=== PATIENT | male | born 1980 | race American Indian/Alaskan Native ===

== ENCOUNTER 2018-07-30 04:38 | Emergency (ER) | payer SELFPAY ==
[2018-07-30 04:50] VITALS: BP 138/91
--- NOTE | 2018-07-30 05:19 | Emergency Department Report ---
- General Chief complaint: Skin Rash Stated complaint: SKIN IRRITATION Time Seen by Provider: 07/30/18 05:08 Source: patient Mode of arrival: Ambulatory Limitations: No Limitations - History of Present Illness Initial comments: Patient is a 37-year-old [place] male who presents for rash dressing and flaky to suprapubic area no rash or penile shaft dry itchy flaky no open lesion or ulcer no cauleyflower rash or papules, no fever or chills, patient states monogamous relationship same partner multiple years states burning in and itching with urination patient does have history of eczema MD complaint: rash Onset/Timin -: week(s) Tetanus Up to Date: yes Location: genitals (abd) Severity: moderate Severity scale (0 -10): 3 Quality: other (itching ) Consistency: intermittent Worsens with: other (scratching ) Context: none Associated symptoms: itching, other (dysuria ) Treatments Prior to Arrival: none - Related Data Previous Rx's Medication Instructions Recorded Last Taken Type Fluconazole [Diflucan TAB] 150 mg PO ONCE #1 tablet 07/30/18 Unknown Rx Miconazole 2% [Monistat-Derm] 1 applicatio TP BID 10 Days #1 tube 07/30/18 Unknown Rx Triamcinolone Aceton 0.1% (Nf) 1 applic TP BID 14 Days #1 tube 07/30/18 Unknown Rx [Kenalog (NF)] diphenhydrAMINE [Benadryl CAP] 25 mg PO Q6HR PRN #30 capsule 07/30/18 Unknown Rx Allergies Allergy/AdvReac Type Severity Reaction Status Date / Time No Known Allergies Allergy Unverified 07/30/18 04:49 Abscess Boil HPI - HPI Chief Complaint: Skin Rash Stated Complaint: SKIN IRRITATION Time Seen by Provider: 07/30/18 05:08 Home Medications: Previous Rx's Medication Instructions Recorded Last Taken Type Fluconazole [Diflucan TAB] 150 mg PO ONCE #1 tablet 07/30/18 Unknown Rx Miconazole 2% [Monistat-Derm] 1 applicatio TP BID 10 Days #1 tube 07/30/18 Unknown Rx Triamcinolone Aceton 0.1% (Nf) 1 applic TP BID 14 Days #1 tube 07/30/18 Unknown Rx [Kenalog (NF)] diphenhydrAMINE [Benadryl CAP] 25 mg PO Q6HR PRN #30 capsule 07/30/18 Unknown Rx Allergies/Adverse Reactions: Allergies Allergy/AdvReac Type Severity Reaction Status Date / Time No Known Allergies Allergy Unverified 07/30/18 04:49 ED Review of Systems ROS: Stated complaint: SKIN IRRITATION Other details as noted in HPI Constitutional: denies: chills, fever Eyes: denies: eye pain, eye discharge, vision change ENT: denies: ear pain, throat pain Respiratory: denies: cough, shortness of breath, wheezing Cardiovascular: denies: chest pain, palpitations Endocrine: no symptoms reported Gastrointestinal: denies: abdominal pain, nausea, diarrhea Genitourinary: urgency, dysuria, frequency. denies: hematuria, discharge, testicular pain, testicular mass Musculoskeletal: denies: back pain, joint swelling, arthralgia Skin: rash. denies: lesions Neurological: denies: headache, weakness, paresthesias Psychiatric: denies: anxiety, depression Hematological/Lymphatic: denies: easy bleeding, easy bruising ED Past Medical Hx - Past Medical History Previous Medical History?: No - Surgical History Past Surgical History?: No - Social History Smoking Status: Current Every Day Smoker Substance Use Type: None - Medications Home Medications: Home Medications Medication Instructions Recorded Confirmed Last Taken Type Fluconazole [Diflucan TAB] 150 mg PO ONCE #1 tablet 07/30/18 Unknown Rx Miconazole 2% [Monistat-Derm] 1 applicatio TP BID 10 Days #1 tube 07/30/18 Unknown Rx Triamcinolone Aceton 0.1% (Nf) 1 applic TP BID 14 Days #1 tube 07/30/18 Unknown Rx [Kenalog (NF)] diphenhydrAMINE [Benadryl CAP] 25 mg PO Q6HR PRN #30 capsule 07/30/18 Unknown Rx ED Physical Exam - General Limitations: No Limitations General appearance: alert, in no apparent distress - Head Head exam: Present: atraumatic, normocephalic - Eye Eye exam: Present: normal appearance - ENT ENT exam: Present: mucous membranes moist - Neck Neck exam: Present: normal inspection - Respiratory Respiratory exam: Present: normal lung sounds bilaterally. Absent: respiratory distress, wheezes, stridor, chest wall tenderness - Cardiovascular Cardiovascular Exam: Present: regular rate, normal rhythm, normal heart sounds. Absent: systolic murmur, diastolic murmur, rubs, gallop - GI/Abdominal GI/Abdominal exam: Present: soft, normal bowel sounds. Absent: distended, tenderness, guarding, rebound, rigid, bruit, hernia - Rectal Rectal exam: Present: deferred - exam: Present: normal inspection, circumcision. Absent: testicular tenderness, urethral discharge, scrotal swelling, vertical testicular lie External exam: Present: erythema (erythema dry painful to touch no lesions no open sorers ). Absent: swelling, lesions, lacerations, ecchymosis, bleeding - Expanded Exam Expanded Male exam: Present: erythema, balanitis - Extremities Exam Extremities exam: Present: normal inspection, full ROM. Absent: tenderness - Back Exam Back exam: Present: normal inspection, full ROM. Absent: tenderness, CVA tenderness (R), CVA tenderness (L), muscle spasm, rash noted - Neurological Exam Neurological exam: Present: alert, oriented X3 - Psychiatric Psychiatric exam: Present: normal affect, normal mood - Skin Skin exam: Present: warm, dry, intact, normal color. Absent: rash ED Course Vital Signs 07/30/18 04:45 Temperature 98.6 F Pulse Rate 87 Respiratory 18 Rate Blood Pressure 138/91 O2 Sat by Pulse 99 Oximetry ED Medical Decision Making - Lab Data Labs 07/30/18 Unknown Urine Color Yellow Urine Turbidity Clear Urine pH 6.0 Ur Specific [place] 1.024 Urine Protein <15 mg/dl Urine Glucose (UA) >=500 Urine Ketones Tr Urine Blood Neg Urine Nitrite Neg Urine Bilirubin Neg Urine Urobilinogen 2.0 Ur Leukocyte Esterase Tr Urine WBC (Auto) 6.0 Urine RBC (Auto) 4.0 U Epithel Cells (Auto) < 1.0 - Medical Decision Making Patient states rash started after using perfumed Enhancement or partner partner had yeast infection and he's itching with similar rash plan treat for balanitis with miconazole 2% cream Diflucan by mouth 1 is requested and triamcinolone ointment for abdominal rash for eczema . Has mild glucose Accu-Chek 237 patient has not taken medication sedates advised to take diabetic diabetes medication upon arrival home patient denies polys will follow up with PCP 2 days or return to emergency department should symptoms worsen patient verbalizes agreement and understanding of discharge plan will be DC'd to home in stable condition at this time. Critical care attestation.: If time is entered above; I have spent that time in minutes in the direct care of this critically ill patient, excluding procedure time. ED Disposition Clinical Impression: Balanitis, Raquel infection Disposition: - TO HOME OR SELFCARE Is pt being admited?: No Does the pt Need Aspirin: No Condition: Stable Instructions: Balanitis (ED), Oral Candidiasis (ED) Prescriptions: diphenhydrAMINE [Benadryl CAP] 25 mg PO Q6HR PRN #30 capsule PRN Reason: Itching Fluconazole [Diflucan TAB] 150 mg PO ONCE #1 tablet Miconazole 2% [Monistat-Derm] 1 applicatio TP BID 10 Days #1 tube Triamcinolone Aceton 0.1% (Nf) [Kenalog (NF)] 1 applic TP BID 14 Days #1 tube Referrals: [facility] [Outside] - 3-5 Days Forms: Work/School Release Form(ED) Time of Disposition: 06:27
[2018-07-30 05:24] LABS: Bilirubin,Urine NEG (Negative); Blood,Urine NEG (Negative); Color,Urine Yellow (Yellow); Protein,Urine <15 mg/dL mg/dL (Negative)
== END 2018-07-30 06:35 | disposition home or self-care (01) ==
LOC: ED 04:38
DX: B37.42 Candidal balanitis (principal); F17.200 Nicotine dependence, unspecified, uncomplicated
CPT/HCPCS: 81001; 82962; 99283

== ENCOUNTER 2018-09-15 10:39 | Emergency (ER) | payer OTHER ==
[2018-09-15 10:46] VITALS: BP 146/94
[2018-09-15] MEDS ORDERED: TORADOL IM ONE (12:48)
[2018-09-15] MEDS ORDERED: XYLOCAINE 1%/ EPI 1:100,000 INFILTRATI ONE (12:48)
--- NOTE | 2018-09-15 14:00 | Emergency Department Report ---
Abscess Boil HPI - HPI Chief Complaint: Skin/Abscess/Foreign Body Stated Complaint: LUMP ON BUTT CHEEK Time Seen by Provider: 09/15/18 12:10 Duration: 3 Days Location: Other (l buttock) Severity: Moderate History: Yes Pain, No Fever, No Purulent Drainage, No Numbness, No Foreign Body, No Previous History, No Insect Bite Home Medications: Previous Rx's Medication Instructions Recorded Last Taken Type Fluconazole [Diflucan TAB] 150 mg PO ONCE #1 tablet 07/30/18 Unknown Rx Miconazole 2% [Monistat-Derm] 1 applicatio TP BID 10 Days #1 tube 07/30/18 Unknown Rx Triamcinolone Aceton 0.1% (Nf) 1 applic TP BID 14 Days #1 tube 07/30/18 Unknown Rx [Kenalog (NF)] diphenhydrAMINE [Benadryl CAP] 25 mg PO Q6HR PRN #30 capsule 07/30/18 Unknown Rx Chlorhexidine Gluconate [Hibiclens] 15 ml TP BID #1 bottle 09/15/18 Unknown Rx Clindamycin [Clindamycin CAP] 300 mg PO Q8H #21 cap 09/15/18 Unknown Rx HYDROcodone/ACETAMINOPHEN 1 each PO Q6HR PRN #15 tablet 09/15/18 Unknown Rx [Hydrocodone-Acetamin 5-325 mg] Ibuprofen [Ibu] 800 mg PO Q8H PRN #20 tablet 09/15/18 Unknown Rx Allergies/Adverse Reactions: Allergies Allergy/AdvReac Type Severity Reaction Status Date / Time No Known Allergies Allergy Unverified 07/30/18 04:49 ED Review of Systems ROS: Stated complaint: LUMP ON BUTT CHEEK Other details as noted in HPI Comment: All other systems reviewed and negative ED Past Medical Hx - Past Medical History Previous Medical History?: No - Surgical History Past Surgical History?: No - Social History Smoking Status: Current Every Day Smoker Substance Use Type: None - Medications Home Medications: Home Medications Medication Instructions Recorded Confirmed Last Taken Type Fluconazole [Diflucan TAB] 150 mg PO ONCE #1 tablet 07/30/18 Unknown Rx Miconazole 2% [Monistat-Derm] 1 applicatio TP BID 10 Days #1 tube 07/30/18 Unknown Rx Triamcinolone Aceton 0.1% (Nf) 1 applic TP BID 14 Days #1 tube 07/30/18 Unknown Rx [Kenalog (NF)] diphenhydrAMINE [Benadryl CAP] 25 mg PO Q6HR PRN #30 capsule 07/30/18 Unknown Rx Chlorhexidine Gluconate [Hibiclens] 15 ml TP BID #1 bottle 09/15/18 Unknown Rx Clindamycin [Clindamycin CAP] 300 mg PO Q8H #21 cap 09/15/18 Unknown Rx HYDROcodone/ACETAMINOPHEN 1 each PO Q6HR PRN #15 tablet 09/15/18 Unknown Rx [Hydrocodone-Acetamin 5-325 mg] Ibuprofen [Ibu] 800 mg PO Q8H PRN #20 tablet 09/15/18 Unknown Rx ED Abscess Boil Physical Exam - Exam General: Vital signs noted. No distress. Alert and acting appropriately. Size: 3 cm Exam: Yes Tenderness, Yes Fluctuance, Yes Surrounding Cellulites/Erythema, Yes Normal Neurologic Exam, Yes Normal Circulation, No Lymphangitis, No Crepitation, No Heart Murmur I & D Note - I & D Note I & D Note: Patient's wound was cleaned with Betadine and draped sterilely. Lidocaine with epinephrine was used to numb the area. 11 blade scalpel was used to make a 1 cm cut. A moderate amount of purulent drainage was drained. Hemostats used to break up loculations. Wound was packed with quarter-inch iodoform gauze. Patient tolerated procedure well. ED Course Vital Signs 09/15/18 09/15/18 10:45 13:16 Temperature 97.8 F Pulse Rate 92 H Respiratory 16 16 Rate Blood Pressure 146/94 O2 Sat by Pulse 98 Oximetry Critical care attestation.: If time is entered above; I have spent that time in minutes in the direct care of this critically ill patient, excluding procedure time. ED Disposition Clinical Impression: Abscess Disposition: DC-01 TO HOME OR SELFCARE Is pt being admited?: No Does the pt Need Aspirin: No Condition: Stable Instructions: Abscess (ED) Additional Instructions: Please leave your packing in place for the next 2-3 days and a you may remove it yourself Referrals: [facility] [Primary Care Provider] - 3-5 Days Time of Disposition: 14:00
== END 2018-09-15 14:14 | disposition home or self-care (01) ==
LOC: ED 10:39
DX: L02.31 Cutaneous abscess of buttock (principal); F17.200 Nicotine dependence, unspecified, uncomplicated
CPT/HCPCS: 10060; 96372; 99282; J1885

== ENCOUNTER 2018-11-05 08:21 | Emergency (ER) | payer SELFPAY ==
[2018-11-05 08:45] VITALS: BP 120/73
[2018-11-05] MEDS ORDERED: IBUPROFEN PO ONE (10:08)
--- NOTE | 2018-11-05 11:28 | Vascular Lab Report ---
PROCEDURE: VL VENOUS DUPLEX LE RT TECHNIQUE: Ryder scale, color and pulsed Doppler ultrasound with color flow and spectral analysis eval uation of right lower extremity was performed to assess for deep vein thrombosis. HISTORY: pain 2 weeks non traumatic COMPARISONS: None currently available. FINDINGS: RIGHT extremity: There is normal grayscale appearance and compressibility. Normal phasic pulsed Doppler and normal col or Doppler flow are visualized. The interrogated vessels show normal augmentation. IMPRESSION: * No evidence for DVT. This document is electronically signed by Willi Crowe MD., Nov 05 2018 11:25:53 AM ET
--- NOTE | 2018-11-05 12:11 | Emergency Department Report ---
ED Extremity Problem HPI - General Chief complaint: Extremity Problem,Nontraumatic Stated complaint: R LEG PAIN Time Seen by Provider: 11/05/18 09:50 Source: patient Mode of arrival: Ambulatory Limitations: No Limitations - History of Present Illness Initial comments: Patient is a 38-year-old -[place] male who is presenting with some right lower extremity pain. Patient states that for the past 2 weeks he said intermittent pain in the right thigh anterior and posterior. Patient does do heavy lifting at work. Patient states that the pain is a 10 out of 10 and is worse and is worse with movement and palpation. He denies any rash or redness to this area. He denies any direct trauma. Patient has no chest pain shortness of breath fevers chills nausea vomiting or diarrhea at this time. Severity scale (0 -10): 7 - Related Data Previous Rx's Medication Instructions Recorded Last Taken Type Fluconazole [Diflucan TAB] 150 mg PO ONCE #1 tablet 07/30/18 Unknown Rx Miconazole 2% [Monistat-Derm] 1 applicatio TP BID 10 Days #1 tube 07/30/18 Unknown Rx Triamcinolone Aceton 0.1% (Nf) 1 applic TP BID 14 Days #1 tube 07/30/18 Unknown Rx [Kenalog (NF)] diphenhydrAMINE [Benadryl CAP] 25 mg PO Q6HR PRN #30 capsule 07/30/18 Unknown Rx Chlorhexidine Gluconate [Hibiclens] 15 ml TP BID #1 bottle 09/15/18 Unknown Rx Clindamycin [Clindamycin CAP] 300 mg PO Q8H #21 cap 09/15/18 Unknown Rx HYDROcodone/ACETAMINOPHEN 1 each PO Q6HR PRN #15 tablet 09/15/18 Unknown Rx [Hydrocodone-Acetamin 5-325 mg] Ibuprofen [Ibu] 800 mg PO Q8H PRN #20 tablet 09/15/18 Unknown Rx Ketorolac [Toradol] 10 mg PO Q6H PRN #12 tablet 11/05/18 Unknown Rx methOCARBAMOL [Robaxin TAB] 500 mg PO Q6H PRN #14 tablet 11/05/18 Unknown Rx traMADol [Ultram] 50 mg PO Q6HR PRN #12 tablet 11/05/18 Unknown Rx Allergies Allergy/AdvReac Type Severity Reaction Status Date / Time No Known Allergies Allergy Unverified 07/30/18 04:49 ED Review of Systems ROS: Stated complaint: R LEG PAIN Other details as noted in HPI Comment: All other systems reviewed and negative ED Past Medical Hx - Past Medical History Previous Medical History?: No - Surgical History Past Surgical History?: No - Social History Smoking Status: Current Every Day Smoker Substance Use Type: Alcohol - Medications Home Medications: Home Medications Medication Instructions Recorded Confirmed Last Taken Type Fluconazole [Diflucan TAB] 150 mg PO ONCE #1 tablet 07/30/18 Unknown Rx Miconazole 2% [Monistat-Derm] 1 applicatio TP BID 10 Days #1 tube 07/30/18 Unknown Rx Triamcinolone Aceton 0.1% (Nf) 1 applic TP BID 14 Days #1 tube 07/30/18 Unknown Rx [Kenalog (NF)] diphenhydrAMINE [Benadryl CAP] 25 mg PO Q6HR PRN #30 capsule 07/30/18 Unknown Rx Chlorhexidine Gluconate [Hibiclens] 15 ml TP BID #1 bottle 09/15/18 Unknown Rx Clindamycin [Clindamycin CAP] 300 mg PO Q8H #21 cap 09/15/18 Unknown Rx HYDROcodone/ACETAMINOPHEN 1 each PO Q6HR PRN #15 tablet 09/15/18 Unknown Rx [Hydrocodone-Acetamin 5-325 mg] Ibuprofen [Ibu] 800 mg PO Q8H PRN #20 tablet 09/15/18 Unknown Rx Ketorolac [Toradol] 10 mg PO Q6H PRN #12 tablet 11/05/18 Unknown Rx methOCARBAMOL [Robaxin TAB] 500 mg PO Q6H PRN #14 tablet 11/05/18 Unknown Rx traMADol [Ultram] 50 mg PO Q6HR PRN #12 tablet 11/05/18 Unknown Rx ED Physical Exam - General Limitations: No Limitations General appearance: alert, in no apparent distress - Head Head exam: Present: atraumatic, normocephalic - Eye Eye exam: Present: normal appearance. Absent: PERRL, EOMI - ENT ENT exam: Present: mucous membranes moist - Neck Neck exam: Present: normal inspection - Respiratory Respiratory exam: Present: normal lung sounds bilaterally. Absent: respiratory distress, wheezes, rales, rhonchi - Cardiovascular Cardiovascular Exam: Present: regular rate, normal rhythm, normal heart sounds. Absent: systolic murmur, diastolic murmur, rubs, gallop - GI/Abdominal GI/Abdominal exam: Present: soft, normal bowel sounds. Absent: distended, tende rness, guarding, rebound, rigid - Rectal Rectal exam: Present: deferred - Extremities Exam Extremities exam: Present: normal inspection - Back Exam Back exam: Present: normal inspection - Neurological Exam Neurological exam: Present: alert, oriented X3 - Psychiatric Psychiatric exam: Present: normal affect, normal mood - Skin Skin exam: Present: warm, dry, intact, normal color. Absent: rash ED Course Vital Signs 11/05/18 08:41 Temperature 98.5 F Pulse Rate 79 Respiratory 16 Rate Blood Pressure 120/73 O2 Sat by Pulse 100 Oximetry ED Medical Decision Making - Radiology Data [facility] [address] [place] [address] Vascular Lab Report Signed Patient: JUAN NICE MR#: [id number] : 1980 Acct:[id number] Age/Sex: 38 / M ADM Date: 11/05/18 Loc: ED Attending Dr: Ordering Physician: SCOTT MANN MD Date of Service: 11/05/18 Procedure(s): VL venous duplex LE RT Accession Number(s): [id number] cc: SCOTT MANN MD PROCEDURE: VL VENOUS DUPLEX LE RT TECHNIQUE: Ryder scale, color and pulsed Doppler ultrasound with color flow and spectral analysis evaluation of right lower extremity was performed to assess for deep vein thrombosis. HISTORY: pain 2 weeks non traumatic COMPARISONS: None currently available. FINDINGS: RIGHT extremity: There is normal grayscale appearance and compressibility. Normal phasic pulsed Doppler and normal color Doppler flow are visualized. The interrogated vessels show normal augmentation. IMPRESSION: * No evidence for DVT. This document is electronically signed by Willi Gardner MD., Nov 05 2018 11:25:53 AM ET Transcribed By: TYM Dictated By: WILLI GARDNER MD Electronically Authenticated By: WILLI GARDNER MD Signed Date/Time: 11/05/18 1128 DD/ 1100 TD/TT: 11/05/18 1101 - Medical Decision Making Patient likely with some muscle skeletal pain secondary to some injury while at work. Patient started on pain as a muscle relaxant to be discharged home. Critical care attestation.: If time is entered above; I have spent that time in minutes in the direct care of this critically ill patient, excluding procedure time. ED Disposition Clinical Impression: Muscle strain Disposition: DC-01 TO HOME OR SELFCARE Is pt being admited?: No Does the pt Need Aspirin: No Condition: Stable Instructions: Muscle Strain (ED) Referrals: CHLOE DALEY MD [Primary Care Provider] - 3-5 Days Time of Disposition: 12:11
== END 2018-11-05 12:42 | disposition home or self-care (01) ==
LOC: ED 08:21
DX: S76.911A Strain of unspecified muscles, fascia and tendons at thigh level, right thigh, initial encounter (principal); F17.200 Nicotine dependence, unspecified, uncomplicated; X50.0XXA Overexertion from strenuous movement or load, initial encounter; Y93.89 Activity, other specified; Y92.69 Other specified industrial and construction area as the place of occurrence of the external cause; Y99.0 Civilian activity done for income or pay
CPT/HCPCS: 99283

== ENCOUNTER 2019-01-13 08:02 | Emergency (ER) | payer SELFPAY ==
[2019-01-13 08:29] VITALS: BP 138/86
[2019-01-13 08:53] LABS: Bilirubin,Urine NEG (Negative); Blood,Urine NEG (Negative); Color,Urine Straw (Yellow); Mucus,Urine FEW /HPF; Protein,Urine <15 mg/dL mg/dL (Negative); Urobilinogen,Urine < 2.0 mg/dL (<2.0)
--- NOTE | 2019-01-13 09:42 | Emergency Department Report ---
ED Male HPI - General Chief complaint: Urogenital-Male Stated complaint: POSS YEAST INFECTION Time Seen by Provider: 01/13/19 09:37 Source: patient Mode of arrival: Ambulatory Limitations: No Limitations - History of Present Illness Initial comments: Emilio Wall is a very pleasant 38-year-old male who presents with a "yeast infection" of the foreskin of his penis. He layne had these symptoms for several months. [id number] yeast cream did improve symptoms. Now the tip is irritated. He wants to ensure that he has a right diagnosis. He does not have any urethral discharge. No dysuria. MD Complaint: other (foreskin irritation) -: Gradual Location: penis Severity: mild Consistency: constant denies other symptoms - Related Data Previous Rx's Medication Instructions Recorded Last Taken Type Fluconazole [Diflucan TAB] 150 mg PO ONCE #1 tablet 07/30/18 Unknown Rx Miconazole 2% [Monistat-Derm] 1 applicatio TP BID 10 Days #1 tube 07/30/18 Unknown Rx Triamcinolone Aceton 0.1% (Nf) 1 applic TP BID 14 Days #1 tube 07/30/18 Unknown Rx [Kenalog (NF)] diphenhydrAMINE [Benadryl CAP] 25 mg PO Q6HR PRN #30 capsule 07/30/18 Unknown Rx Chlorhexidine Gluconate [Hibiclens] 15 ml TP BID #1 bottle 09/15/18 Unknown Rx Clindamycin [Clindamycin CAP] 300 mg PO Q8H #21 cap 09/15/18 Unknown Rx HYDROcodone/ACETAMINOPHEN 1 each PO Q6HR PRN #15 tablet 09/15/18 Unknown Rx [Hydrocodone-Acetamin 5-325 mg] Ibuprofen [Ibu] 800 mg PO Q8H PRN #20 tablet 09/15/18 Unknown Rx Ketorolac [Toradol] 10 mg PO Q6H PRN #12 tablet 11/05/18 Unknown Rx methOCARBAMOL [Robaxin TAB] 500 mg PO Q6H PRN #14 tablet 11/05/18 Unknown Rx traMADol [Ultram] 50 mg PO Q6HR PRN #12 tablet 11/05/18 Unknown Rx Neomycn/Bacitrc/Polymyx/Pramox 30 gm TP TID 14 Days #1 oint...g. 01/13/19 Unknown Rx [Triple Antibiotic Plus Ointmnt] Allergies Allergy/AdvReac Type Severity Reaction Status Date / Time No Known Allergies Allergy Unverified 07/30/18 04:49 ED Review of Systems ROS: Stated complaint: POSS YEAST INFECTION Other details as noted in HPI Constitutional: denies: fever, malaise Gastrointestinal: denies: abdominal pain, nausea, vomiting Genitourinary: denies: dysuria, frequency, discharge, testicular pain, testicular mass ED Past Medical Hx - Past Medical History Previous Medical History?: No - Surgical History Past Surgical History?: No - Social History Smoking Status: Current Every Day Smoker Substance Use Type: Marijuana - Medications Home Medications: Home Medications Medication Instructions Recorded Confirmed Last Taken Type Fluconazole [Diflucan TAB] 150 mg PO ONCE #1 tablet 07/30/18 Unknown Rx Miconazole 2% [Monistat-Derm] 1 applicatio TP BID 10 Days #1 tube 07/30/18 Unknown Rx Triamcinolone Aceton 0.1% (Nf) 1 applic TP BID 14 Days #1 tube 07/30/18 Unknown Rx [Kenalog (NF)] diphenhydrAMINE [Benadryl CAP] 25 mg PO Q6HR PRN #30 capsule 07/30/18 Unknown Rx Chlorhexidine Gluconate [Hibiclens] 15 ml TP BID #1 bottle 09/15/18 Unknown Rx Clindamycin [Clindamycin CAP] 300 mg PO Q8H #21 cap 09/15/18 Unknown Rx HYDROcodone/ACETAMINOPHEN 1 each PO Q6HR PRN #15 tablet 09/15/18 Unknown Rx [Hydrocodone-Acetamin 5-325 mg] Ibuprofen [Ibu] 800 mg PO Q8H PRN #20 tablet 09/15/18 Unknown Rx Ketorolac [Toradol] 10 mg PO Q6H PRN #12 tablet 11/05/18 Unknown Rx methOCARBAMOL [Robaxin TAB] 500 mg PO Q6H PRN #14 tablet 11/05/18 Unknown Rx traMADol [Ultram] 50 mg PO Q6HR PRN #12 tablet 11/05/18 Unknown Rx Neomycn/Bacitrc/Polymyx/Pramox 30 gm TP TID 14 Days #1 oint...g. 01/13/19 Unknown Rx [Triple Antibiotic Plus Ointmnt] ED Physical Exam - General Limitations: No Limitations General appearance: alert, in no apparent distress - Head Head exam: Present: atraumatic, normocephalic - Respiratory Respiratory exam: Absent: respiratory distress - exam: Present: other (uncircumcised,mild irritation multiple skin abrasions involving the foreskin). Absent: testicular tenderness, urethral discharge, scrotal swelling, vertical testicular lie ED Course Vital Signs 01/13/19 08:27 Temperature 97.9 F Pulse Rate 84 Respiratory 18 Rate Blood Pressure 138/86 O2 Sat by Pulse 100 Oximetry ED Medical Decision Making - Lab Data Laboratory Results - last 24 hr 01/13/19 08:36 Urine Color Straw Urine Turbidity Clear Urine pH 6.0 Ur Specific [place] 1.031 H Urine Protein <15 mg/dl Urine Glucose (UA) >=500 Urine Ketones Neg Urine Blood Neg Urine Nitrite Neg Urine Bilirubin Neg Urine Urobilinogen < 2.0 Ur Leukocyte Esterase Neg Urine WBC (Auto) 1.0 Urine RBC (Auto) 1.0 U Epithel Cells (Auto) 1.0 Urine Mucus Few - Medical Decision Making Mr. Wall presents with a balanitis of the foreskin, prescribed triple antibiotic ointment, recommended abstinence from sexual intercourse for the next 2 weeks. I reviewed the urinalysis results. Urinalysis negative for acute process. Critical care attestation.: If time is entered above; I have spent that time in minutes in the direct care of this critically ill patient, excluding procedure time. ED Disposition Clinical Impression: Balanitis Disposition: DC-01 TO HOME OR SELFCARE Is pt being admited?: No Does the pt Need Aspirin: No Condition: Stable Instructions: Balanitis (ED) Prescriptions: Neomycn/Bacitrc/Polymyx/Pramox [Triple Antibiotic Plus Ointmnt] 30 gm TP TID 14 Days #1 oint...g. Referrals: [facility] [Outside] - 3-5 Days
== END 2019-01-13 09:52 | disposition home or self-care (01) ==
LOC: ED 08:02
DX: N48.1 Balanitis (principal); F17.200 Nicotine dependence, unspecified, uncomplicated; F12.10 Cannabis abuse, uncomplicated; Z79.899 Other long term (current) drug therapy
CPT/HCPCS: 81001

== ENCOUNTER 2022-01-13 09:27 | Emergency (ER) | payer SELFPAY ==
[2022-01-13] MEDS ORDERED: SULFAMETHOXAZOLE/TRIMETHOPRIM 800/160MG DS TAB PO ONE (12:27)
[2022-01-13] MEDS ORDERED: KETOROLAC 10 MG TAB PO ONE (12:27)
[2022-01-13] MEDS ORDERED: LIDOCAINE (1%) 10 MG/1 ML VIAL 20 ML MDV INFILTRATI ONE (12:27)
[2022-01-13] MEDS ORDERED: oxyCODONE /ACETAMINOPHEN 5-325MG TAB PO ONE (12:27)
--- NOTE | 2022-01-13 14:01 | Emergency Department Report ---
- General Chief complaint: Skin/Abscess/Foreign Body Stated complaint: SORE ON BACKSIDE Time Seen by Provider: 01/13/22 12:17 Source: patient Mode of arrival: Ambulatory Limitations: No Limitations - History of Present Illness Initial comments: 41-year-old black male with past medical history of diabetes presents to the emergency department for evaluation of 1 week history of worsening pain and swelling to his perineal area. He states that he has had an abscess in his perineal area in the past but states that it was not this being or this painful. He denies fever, abdominal pain, nausea, vomiting. MD complaint: abscess/boil -: Gradual, week(s) (1) Location: genitals Severity scale (0 -10): 10 Quality: aching Consistency: constant Worsens with: palpation, movement Associated symptoms: denies other symptoms Treatments Prior to Arrival: none - Related Data Previous Rx's Medication Instructions Recorded Last Taken Type Fluconazole (Nf) [Diflucan TAB] 150 mg PO ONCE #1 tablet 07/30/18 Unknown Rx Miconazole 2% [Monistat-Derm] 1 applicatio TP BID 10 Days #1 tube 07/30/18 Unknown Rx Triamcinolone Aceton 0.1% (Nf) 1 applic TP BID 14 Days #1 tube 07/30/18 Unknown Rx [Kenalog (NF)] diphenhydrAMINE [Benadryl CAP] 25 mg PO Q6HR PRN #30 capsule 07/30/18 Unknown Rx Chlorhexidine Gluconate [Hibiclens] 15 ml TP BID #1 bottle 09/15/18 Unknown Rx Clindamycin [Clindamycin CAP] 300 mg PO Q8H #21 cap 09/15/18 Unknown Rx HYDROcodone/ACETAMINOPHEN 1 each PO Q6HR PRN #15 tablet 09/15/18 Unknown Rx [Hydrocodone-Acetamin 5-325 mg] Ibuprofen [Ibu] 800 mg PO Q8H PRN #20 tablet 09/15/18 Unknown Rx Ketorolac [Toradol] 10 mg PO Q6H PRN #12 tablet 11/05/18 Unknown Rx methOCARBAMOL [Robaxin TAB] 500 mg PO Q6H PRN #14 tablet 11/05/18 Unknown Rx traMADoL [Ultram] 50 mg PO Q6HR PRN #12 tablet 11/05/18 Unknown Rx Neomycn/Bacitrc/Polymyx/Pramox 30 gm TP TID 14 Days #1 oint...g. 01/13/19 Unknown Rx [Triple Antibiotic Plus Ointmnt] Acetaminophen/Codeine [Tylenol 1 tab PO Q6H PRN #12 tab 01/13/22 Unknown Rx /Codeine # 3 tab] Ketorolac [Toradol] 10 mg PO Q6H PRN #12 tab 01/13/22 Unknown Rx Sulfamethoxazole/Trimethoprim 1 each PO BID #14 tab 01/13/22 Unknown Rx [Bactrim DS TAB] Allergies Allergy/AdvReac Type Severity Reaction Status Date / Time No Known Allergies Allergy Unverified 07/30/18 04:49 Abscess Boil HPI - HPI Chief Complaint: Skin/Abscess/Foreign Body Stated Complaint: SORE ON BACKSIDE Time Seen by Provider: 01/13/22 12:17 Location: Other (Perineum) Severity: Severe History: Yes Pain, Yes Previous History, No Fever, No Purulent Drainage, No Numbness, No Foreign Body, No Insect Bite Home Medications: Previous Rx's Medication Instructions Recorded Last Taken Type Fluconazole (Nf) [Diflucan TAB] 150 mg PO ONCE #1 tablet 07/30/18 Unknown Rx Miconazole 2% [Monistat-Derm] 1 applicatio TP BID 10 Days #1 tube 07/30/18 Unknown Rx Triamcinolone Aceton 0.1% (Nf) 1 applic TP BID 14 Days #1 tube 07/30/18 Unknown Rx [Kenalog (NF)] diphenhydrAMINE [Benadryl CAP] 25 mg PO Q6HR PRN #30 capsule 07/30/18 Unknown Rx Chlorhexidine Gluconate [Hibiclens] 15 ml TP BID #1 bottle 09/15/18 Unknown Rx Clindamycin [Clindamycin CAP] 300 mg PO Q8H #21 cap 09/15/18 Unknown Rx HYDROcodone/ACETAMINOPHEN 1 each PO Q6HR PRN #15 tablet 09/15/18 Unknown Rx [Hydrocodone-Acetamin 5-325 mg] Ibuprofen [Ibu] 800 mg PO Q8H PRN #20 tablet 09/15/18 Unknown Rx Ketorolac [Toradol] 10 mg PO Q6H PRN #12 tablet 11/05/18 Unknown Rx methOCARBAMOL [Robaxin TAB] 500 mg PO Q6H PRN #14 tablet 11/05/18 Unknown Rx traMADoL [Ultram] 50 mg PO Q6HR PRN #12 tablet 11/05/18 Unknown Rx Neomycn/Bacitrc/Polymyx/Pramox 30 gm TP TID 14 Days #1 oint...g. 01/13/19 Unknown Rx [Triple Antibiotic Plus Ointmnt] Acetaminophen/Codeine [Tylenol 1 tab PO Q6H PRN #12 tab 01/13/22 Unknown Rx /Codeine # 3 tab] Ketorolac [Toradol] 10 mg PO Q6H PRN #12 tab 01/13/22 Unknown Rx Sulfamethoxazole/Trimethoprim 1 each PO BID #14 tab 01/13/22 Unknown Rx [Bactrim DS TAB] Allergies/Adverse Reactions: Allergies Allergy/AdvReac Type Severity Reaction Status Date / Time No Known Allergies Allergy Unverified 07/30/18 04:49 ED Review of Systems ROS: Stated complaint: SORE ON BACKSIDE Other details as noted in HPI Comment: All other systems reviewed and negative Constitutional: denies: chills, fever, malaise, weakness ENT: denies: congestion Respiratory: denies: shortness of breath Cardiovascular: denies: chest pain, palpitations Gastrointestinal: denies: abdominal pain, nausea, vomiting Genitourinary: denies: urgency, dysuria, frequency, discharge, testicular pain Musculoskeletal: denies: back pain Skin: denies: rash, lesions Neurological: denies: headache, weakness ED Past Medical Hx - Past Medical History Previous Medical History?: Yes Hx Diabetes: Yes - Surgical History Past Surgical History?: No - Social History Smoking Status: Current Every Day Smoker - Medications Home Medications: Home Medications Medication Instructions Recorded Confirmed Last Taken Type Fluconazole (Nf) [Diflucan TAB] 150 mg PO ONCE #1 tablet 07/30/18 Unknown Rx Miconazole 2% [Monistat-Derm] 1 applicatio TP BID 10 Days #1 tube 07/30/18 Unknown Rx Triamcinolone Aceton 0.1% (Nf) 1 applic TP BID 14 Days #1 tube 07/30/18 Unknown Rx [Kenalog (NF)] diphenhydrAMINE [Benadryl CAP] 25 mg PO Q6HR PRN #30 capsule 07/30/18 Unknown Rx Chlorhexidine Gluconate [Hibiclens] 15 ml TP BID #1 bottle 09/15/18 Unknown Rx Clindamycin [Clindamycin CAP] 300 mg PO Q8H #21 cap 09/15/18 Unknown Rx HYDROcodone/ACETAMINOPHEN 1 each PO Q6HR PRN #15 tablet 09/15/18 Unknown Rx [Hydrocodone-Acetamin 5-325 mg] Ibuprofen [Ibu] 800 mg PO Q8H PRN #20 tablet 09/15/18 Unknown Rx Ketorolac [Toradol] 10 mg PO Q6H PRN #12 tablet 11/05/18 Unknown Rx methOCARBAMOL [Robaxin TAB] 500 mg PO Q6H PRN #14 tablet 11/05/18 Unknown Rx traMADoL [Ultram] 50 mg PO Q6HR PRN #12 tablet 11/05/18 Unknown Rx Neomycn/Bacitrc/Polymyx/Pramox 30 gm TP TID 14 Days #1 oint...g. 01/13/19 Unknown Rx [Triple Antibiotic Plus Ointmnt] Acetaminophen/Codeine [Tylenol 1 tab PO Q6H PRN #12 tab 01/13/22 Unknown Rx /Codeine # 3 tab] Ketorolac [Toradol] 10 mg PO Q6H PRN #12 tab 01/13/22 Unknown Rx Sulfamethoxazole/Trimethoprim 1 each PO BID #14 tab 01/13/22 Unknown Rx [Bactrim DS TAB] ED Physical Exam - General Limitations: No Limitations General appearance: alert, in no apparent distress - Head Head exam: Present: atraumatic, normocephalic - Eye Eye exam: Present: normal appearance. Absent: conjunctival injection - Neck Neck exam: Present: normal inspection. Absent: tenderness, lymphadenopathy - Respiratory Respiratory exam: Present: normal lung sounds bilaterally. Absent: respiratory distress, wheezes, rales, rhonchi, stridor, chest wall tenderness - Cardiovascular Cardiovascular Exam: Present: tachycardia, normal heart sounds - GI/Abdominal GI/Abdominal exam: Present: soft, normal bowel sounds. Absent: distended, tenderness, guarding, rebound, rigid - Rectal Rectal exam: Present: tenderness, other (Noted to have large abscessed area be tween the rectum and scrotal area. Area noted to be erythematous, fluctuant and tender to any touch. No drainage noted) - Extremities Exam Extremities exam: Present: normal inspection, normal capillary refill - Back Exam Back exam: Present: normal inspection. Absent: CVA tenderness (R), CVA tenderness (L) - Neurological Exam Neurological exam: Present: alert, oriented X3 - Psychiatric Psychiatric exam: Present: normal affect, normal mood - Skin Skin exam: Present: warm, dry, intact, normal color ED Course Vital Signs 01/13/22 09:43 Temperature 97.8 F Pulse Rate 102 H Respiratory 18 Rate Blood Pressure 127/75 O2 Sat by Pulse 99 Oximetry - I & D Right Perineum Type of Procedure: Simple Site: Right perineal area between rectum and scrotum Blade Size: 11 I & D Procedure: betadine prep Progress: Area anesthetized using field block with 10 cc of 1% lidocaine without, then small incision made with #11 blade. Copious amounts of first clear water like drainage followed by copious amounts of purulent drainage. Patient tolerated well and states that pain and swelling is significantly improved. ED Medical Decision Making - Medical Decision Making 41-year-old black male with past medical history of diabetes presents to the emergency department for evaluation of 1 week history of worsening pain and swelling to his perineal area. He states that he has had an abscess in his perineal area in the past but states that it was not this being or this painful. He denies fever, abdominal pain, nausea, vomiting. Incision and drainage of right perineal abscess per my procedure note. Patient tolerated well. Patient will be discharged home with 7-day course of Bactrim along with Toradol and Tylenol 3 to use as needed for pain. He is advised to monitor and keep tight control of his blood sugar in order to facilitate healing and follow-up with his primary care provider if no improvement or worsening symptoms. He is advised to return to the emergency department for any concerning symptoms. He verbalizes understanding of and agreement with plan of care. Critical care attestation.: If time is entered above; I have spent that time in minutes in the direct care of this critically ill patient, excluding procedure time. ED Disposition Clinical Impression: Abscess, perineum Disposition: 01 HOME / SELF CARE / HOMELESS Is pt being admited?: No Does the pt Need Aspirin: No Condition: Stable Instructions: Skin Abscess, [id number], Incision and Drainage, Care After Additional Instructions: Take medication as prescribed. Manage blood sugar tightly. Follow-up with your primary care provider if no improvement or worsening symptoms. Return to the emergency department for any concerning symptoms. Prescriptions: Sulfamethoxazole/Trimethoprim [Bactrim DS TAB] 1 each PO BID #14 tab Ketorolac [Toradol] 10 mg PO Q6H PRN #12 tab PRN Reason: Pain Acetaminophen/Codeine [Tylenol /Codeine # 3 tab] 1 tab PO Q6H PRN #12 tab PRN Reason: Pain , Severe (7-10) Referrals: INOCENCIO MARQUEZ MD [Staff Physician] - 3-5 Days Forms: Work/School Release Form(ED) Time of Disposition: 14:03
[2022-01-13 14:29] VITALS: BP 138/96
== END 2022-01-13 15:18 | disposition home or self-care (01) ==
LOC: ED 09:27
DX: L02.215 Cutaneous abscess of perineum (principal); F17.200 Nicotine dependence, unspecified, uncomplicated; E11.9 Type 2 diabetes mellitus without complications
CPT/HCPCS: 99282